=== PATIENT | female | born 1950 | race African-American/Black ===

== ENCOUNTER 2018-09-26 22:11 | Observation (INO) | payer MEDICARE, OTHER ==
[2018-09-26] MEDS ORDERED: ASPIRIN 81 MG TABLET, CHEWABLE PO ONE (22:20)
--- NOTE | 2018-09-26 22:52 | RADIOLOGY REPORT (SQ) ---
EXAM DESCRIPTION: XR CHEST 1 VIEW COMPLETED DATE/TME: 09/26/2018 22:20 CLINICAL HISTORY: 68 years, Female, htn COMPARISON: None. NUMBER OF VIEWS: 1 TECHNIQUE: Portable chest LIMITATIONS: None. FINDINGS: Heart size is normal. Osteopenia. Lungs are clear. No pneumothorax IMPRESSION: No acute cardiopulmonary process copyright 2010 [employer]- All Rights Reserved
--- NOTE | 2018-09-26 22:53 | RADIOLOGY REPORT (SQ) ---
EXAM DESCRIPTION: CT HEAD WITHOUT IV CONTRAST COMPLETED DATE/TME: 09/26/2018 22:20 CLINICAL HISTORY: 68 years, Female, HTN dizzy COMPARISON: 06/16/2016 CT brain TECHNIQUE: 204 Images stored on PACS. All CT scanners at this facility use dose modulation, iterative reconstruction, and/or weight based dosing when appropriate to reduce radiation dose to as low as reasonably achievable (ALARA). [facility]: Dose Right [facility]: CareDose [facility]: Dose Right [facility]: Teradose 4D [facility]: [employer] LIMITATIONS: None. FINDINGS: The globes are intact. The paranasal sinuses and mastoid air cells are unremarkable. No displaced or depressed skull fracture. No intra or extra-axial hemorrhage. CT is limited for evaluation of acute infarct. No CT evidence for large or territorial acute infarct. No mass or midline shift. IMPRESSION: Unremarkable unenhanced CT brain TECHNICAL DOCUMENTATION: Quality ID # 436: Final reports with documentation of one or more dose reduction techniques (e.g., Automated exposure control, adjustment of the mA and/or kV according to patient size, use of iterative reconstruction technique) copyright 2011 [employer]- All Rights Reserved
[2018-09-26 23:05] LABS: ABSOLUTE EOSINOPHILS # (AUTO) 0.1 10^3/uL (0.0-0.6); ABSOLUTE LYMPHOCYTES (AUTO) 1.6 10^3/uL (0.5-4.7); ABSOLUTE MONOCYTES (AUTO) 0.6 10^3/uL (0.1-1.4); ABSOLUTE NEUT (AUTO) 2.8 10^3/uL (1.7-8.2); BASOPHILS % (AUTO) 0.4 % (0-2); EOSINOPHILS % (AUTO) 2.5 % (0-6); HEMATOCRIT 35.5 % (36.0-47.0); HEMOGLOBIN 12.1 g/dL (12.0-15.5); MEAN CORPUSCULAR HEMOGLOBIN 28.9 pg (27.0-33.4); MEAN CORPUSCULAR HGB CONC 34.2 g/dL (32.0-36.0); MEAN CORPUSCULAR VOLUME 85 fl (80-97); MONOCYTES % (AUTO) 11.3 % (3-13); PLATELET COUNT 308 10^3/uL (150-450); RED BLOOD COUNT 4.19 10^6/uL (3.72-5.28); RED CELL DISTRIBUTION WIDTH 13.9 % (11.5-14.0); SEGMENTED NEUTROPHILS % (AUTO) 53.8 % (42-78); TOTAL CELLS COUNTED % (AUTO) 100 %; WHITE BLOOD COUNT 5.1 10^3/uL (4.0-10.5)
[2018-09-26] MEDS ORDERED: METOPROLOL TARTRATE PF/INJ 5 MG/5 ML SDV IV ONE (23:09)
--- NOTE | 2018-09-26 23:13 | ER Document Report ---
ED General - General Chief Complaint: Blood Pressure Problem Stated Complaint: HIGH BLOOD PRESSURE Time Seen by Provider: 09/26/18 22:57 Primary Care Provider: KARLA SUÁREZ MD [Primary Care Provider] - Follow up as needed TRAVEL OUTSIDE OF THE [place] IN LAST 30 DAYS: No - HPI Notes: Patient is a 68-year-old female that presents to the emergency department for chief complaint of dizziness. Patient states this evening she started to have dizziness. She describes it as feeling like the waves of the ocean or in her head. She denies any lightheadedness or syncope. She does state that this prompted her to take her blood pressure and she found it was elevated. She usually takes lisinopril once a day and reports being compliant with this medication. Patient also states she has had some tingling in her right arm which has been intermittent. She states that her right arm currently feels normal. She denies headache, vision changes, chest pain, palpitations, nausea, vomiting, diaphoresis and abdominal pain. Past Medical History: Hypertension, asthma Past Surgical History: Tubal ligation, hysterectomy, breast lumpectomy Social History: Denies tobacco and alcohol use Family History: Reviewed and noncontributory for presenting illness Allergies: Reviewed, see documented allergy list. REVIEW OF SYSTEMS: CONSTITUTIONAL : No fever No chills No diaphoresis No recent illness EENT: No vision changes No congestion No sore throat CARDIOVASCULAR: No chest pain No palpitations RESPIRATORY: No shortness of breath No cough No difficulty breathing GASTROINTESTINAL: No abdominal pain No nausea No vomiting No diarrhea GENITOURINARY: No dysuria No hematuria No difficulty urinating MUSCULOSKELETAL: No back pain No leg pain No arm pain SKIN: No rashes No lesions LYMPHATIC: No swollen, enlarged glands. NEUROLOGICAL: No lightheadedness No headache Dizziness No weakness paresthesias PSYCHIATRIC: No anxiety No depression PHYSICAL EXAMINATION: Vital signs reviewed, nursing noted reviewed. GENERAL: Well-appearing, well-nourished and in no acute distress. HEAD: Atraumatic, normocephalic. EYES: Eyes appear normal, extraocular movements intact, sclera anicteric, conjunctiva are normal. ENT: nares patent, oropharynx clear without exudates. Moist mucous membranes. NECK: Normal range of motion, supple without lymphadenopathy LUNGS: Breath sounds clear to auscultation bilaterally and equal. No wheezes rales or rhonchi. HEART: Regular rate and rhythm without murmurs ABDOMEN: Soft, nontender, normoactive bowel sounds. No rebound, guarding, or rigidity. No masses appreciated. EXTREMITIES: Nontender, good range of motion, no pitting or edema. NEUROLOGICAL: No focal neurological deficits. Moves all extremities spontaneously Motor and sensory grossly intact on exam. PSYCH: Normal mood, normal affect. SKIN: Warm, Dry, normal turgor, no rashes or lesions noted on exposed skin - Related Data Allergies/Adverse Reactions: No Known Allergies Allergy (Unverified 06/16/16 14:58) Past Medical History - Social History Smoking Status: Never Smoker Family History: Reviewed & Not Pertinent - Past Medical History Cardiac Medical History: Reports: Hx Hypertension Pulmonary Medical History: Reports: Hx Asthma Past Surgical History: Reports: Hx Breast Surgery, Hx Hysterectomy, Hx Tubal Ligation - Immunizations Hx Diphtheria, Pertussis, Tetanus Vaccination: Yes Physical Exam - Vital signs Vitals: Temp Pulse Resp BP Pulse Ox 97.9 F 93 16 229/94 H 98 09/26/18 22:16 09/26/18 22:16 09/26/18 22:16 09/26/18 22:16 09/26/18 22:16 Course - Re-evaluation Re-evalutation: 09/26/18 23:11 Vitals reviewed. Nursing notes reviewed. Patient is hypertensive but appears to be in no acute distress. She has no focal neurologic deficits currently. Patient will be given IV metoprolol for blood pressure control. 09/27/18 00:09 Patient's lab work is unremarkable. Her troponin is negative. Her CT brain shows no acute intracranial process. After IV metoprolol her blood pressure is 155/76. Patient's complaint of intermittent right arm paresthesias is concerning for possible TIA related to her uncontrolled hypertension. She will be admitted to the hospital for observation. Case discussed with Dr. Suárez who has accepted admission. Laboratory 09/26/18 09/26/18 09/26/18 22:58 22:58 22:58 WBC 5.1 RBC 4.19 Hgb 12.1 Hct 35.5 L MCV 85 MCH 28.9 MCHC 34.2 RDW 13.9 Plt Count 308 Seg Neutrophils % 53.8 Lymphocytes % 32.0 Monocytes % 11.3 Eosinophils % 2.5 Basophils % 0.4 Absolute Neutrophils 2.8 Absolute Lymphocytes 1.6 Absolute Monocytes 0.6 Absolute Eosinophils 0.1 Absolute Basophils 0.0 Sodium 143.0 Potassium 3.5 L Chloride 104 Carbon Dioxide 31 H Anion Gap 8 BUN 16 Creatinine 0.96 Est GFR ( Amer) > 60 Est GFR (Non-Af Amer) 58 L Glucose 93 Calcium 10.1 Total Bilirubin 0.3 Direct Bilirubin 0.1 Neonat Total Bilirubin Not Reportable Neonat Direct Bilirubin Not Reportable Neonat Indirect Bili Not Reportable AST 23 ALT 25 Alkaline Phosphatase 100 Creatine Kinase Cancelled CK-MB (CK-2) Cancelled Troponin I < 0.012 Total Protein 7.9 Albumin 4.6 Chest X-Ray 09/26/18 22:20 IMPRESSION: No acute cardiopulmonary process copyright 2010 [employer]- All Rights Reserved Head CT 09/26/18 22:20 IMPRESSION: Unremarkable unenhanced CT brain TECHNICAL DOCUMENTATION: Quality ID # 436: Final reports with documentation of one or more dose reduction techniques (e.g., Automated exposure control, adjustment of the mA and/or kV according to patient size, use of iterative reconstruction technique) copyright 2011 [employer]- All Rights Reserved - Vital Signs Vital signs: Temp Pulse Resp BP Pulse Ox 97.9 F 93 16 229/94 H 98 09/26/18 22:16 09/26/18 22:16 09/26/18 22:16 09/26/18 22:16 09/26/18 22:16 - Laboratory Result Diagrams: 09/26/18 22:58 09/26/18 22:58 Laboratory results interpreted by me: 09/26/18 09/26/18 22:58 22:58 Hct 35.5 L Potassium 3.5 L Carbon Dioxide 31 H Est GFR (Non-Af Amer) 58 L - EKG Interpretation by Me Additional EKG results interpreted by me: 09/26/18 23:12 Interpreted by myself 08/27/2007: Normal sinus rhythm, rate 84, normal axis, LVH Discharge - Discharge Clinical Impression: Arm paresthesia, right, Dizziness Hypertension Qualifiers: Hypertension type: unspecified Qualified Code(s): I10 - Essential (primary) hypertension Condition: Stable Disposition: ADMITTED OBSERVATION Admitting Provider: [facility] Unit Admitted: Telemetry
[2018-09-26 23:23] LABS: ALANINE AMINOTRANSFERASE 25 U/L (9-52); ALBUMIN 4.6 g/dL (3.5-5.0); ALKALINE PHOSPHATASE 100 U/L (38-126); ANION GAP 8 (5-19); ASPARTATE AMINO TRANSFERASE 23 U/L (14-36); BILIRUBIN,DIRECT 0.1 mg/dL (0.0-0.4); BILIRUBIN,TOTAL 0.3 mg/dL (0.2-1.3); BLOOD UREA NITROGEN 16 mg/dL (7-20); CALCIUM 10.1 mg/dL (8.4-10.2); CARBON DIOXIDE 31 mmol/L (22-30); CHLORIDE 104 mmol/L (98-107); GLUCOSE 93 mg/dL (75-110); POTASSIUM 3.5 mmol/L (3.6-5.0); TOTAL PROTEIN 7.9 g/dL (6.3-8.2)
--- NOTE | 2018-09-27 01:30 | EKG REPORT ---
SEVERITY:- ABNORMAL ECG - SINUS RHYTHM LEFT VENTRICULAR HYPERTROPHY : Confirmed by: Pattie Gaspar MD 27-Sep-2018 01:29:18
[2018-09-27 01:46] LABS: FREE T4 (FREE THYROXINE) 1.25 ng/dL (0.78-2.19)
[2018-09-27 02:00] LABS: THYROID STIMULATING HORMONE 2.89 uIU/mL (0.47-4.68)
[2018-09-27] MEDS: NICARDIPINE HCL RTU, ISO-OS 20 MG/200 ML RTUINJ IV PRN ×3 (02:11→13:07)
--- NOTE | 2018-09-27 10:35 | ER Document Report ---
Doctor's Note Notes: 09/27/18 10:33 Patient seen and examined. She has no acute complaints or concerns. She denies any paresthesias at this time. No longer feeling dizzy. Did have breakfast this morning, tolerated without difficulty. Vital signs reviewed, current telemetry reveals heart rate of 79, blood pressure 133/78, currently on Cardene drip, SPO2 100% on room air. Heart is regular rate and rhythm, lungs are clear to auscultation bilaterally. Patient is awake and alert, moves all 470 spontaneously. Skin is warm and dry. Patient is currently awaiting a unit bed. She is admitted to Dr. Mckenzie. She is in the midst of collecting a 24-hour urine. We will continue to monitor.
[2018-09-27] MEDS: ENOXAPARIN SODIUM INJ 40 MG/0.4 ML DISP.SYRIN SUBCUT SCH (10:53)
[2018-09-27] MEDS ORDERED: ALBUTEROL SULFATE HFA (90 MCG/PUFF) 200 PUFF/8.5 GM MDI IH PRN (14:31)
[2018-09-27] MEDS: METOPROLOL SUCCINATE 50 MG TAB.SR.24H PO SCH (15:25)
[2018-09-27] MEDS ORDERED: ENOXAPARIN SODIUM INJ 40 MG/0.4 ML DISP.SYRIN SUBCUT SCH (17:30)
[2018-09-27] MEDS ORDERED: MONTELUKAST SODIUM 10 MG TABLET PO SCH (18:00)
[2018-09-27] MEDS ORDERED: (PENDING PHARMACY ID) (Lisinopril/Hydrochlorothiazide [Zestoretic 20-12.5 Mg Tablet] 1 TAB PO SCH (18:00)
--- NOTE | 2018-09-27 18:59 | PDOC H&P ---
History of Present Illness Admission Date/PCP: 09/27/18 00:15 KARLA SUÁREZ MD History of Present Illness: CAROLYN WELDON is a 68 year old female She is very noncompliant the last office visit was over 2 years ago, she came to the emergency room last night for evaluation of sudden onset of right-sided hemisensory loss, she said she felt numbness on the right side of her body she was at [facility] when she had this episode of sudden numbness affecting the right side of her body she took her blood pressure it was elevated she then came to the emergency room for evaluation. In the emergency room she was evaluated CT head was done it was negative for any acute pathology, the metabolic panel that was drawn demonstrated hypokalemia the systolic blood pressure was over 200 .I was called earlier this morning to have this patient admitted to the hospital for further evaluation. She was started on Cardene infusion in the emergency room when I saw her in the ER the blood pressure was somewhat controlled,Her symptom is consistent with TIA Past Medical History Cardiac Medical History: Reports: Hypertension Pulmonary Medical History: Reports: Asthma Past Surgical History Past Surgical History: Reports: Hysterectomy, Tubal Ligation Social History Smoking Status: Never Smoker Frequency of Alcohol Use: None Hx Recreational Drug Use: No Drugs: None Hx Prescription Drug Abuse: No - Advance Directive Resuscitation Status: Full Code Family History Family History: Reviewed & Not Pertinent Parental Family History Reviewed: Yes Children Family History Reviewed: Yes Sibling(s) Family History Reviewed.: Yes Medication/Allergy Home Medications: Albuterol Sulfate [Proair HFA Inhalation Aerosol 8.5 gm MDI] 2 puff IH Q4HP PRN 09/27/18 Lisinopril/Hydrochlorothiazide [Zestoretic 20-12.5 mg Tablet] 1 tab PO BID 09/27/18 Montelukast Sodium [Singulair 10 mg Tablet] 10 mg PO QPM 09/27/18 Allergies/Adverse Reactions: No Known Allergies Allergy (Unverified 06/16/16 14:58) Review of Systems Constitutional: ABSENT: chills, fever(s), headache(s), weight gain, weight loss Eyes: ABSENT: visual disturbances Ears: ABSENT: hearing changes Cardiovascular: ABSENT: chest pain, dyspnea on exertion, edema, orthropnea, palpitations Respiratory: ABSENT: cough, hemoptysis Gastrointestinal: ABSENT: abdominal pain, constipation, diarrhea, hematemesis, hematochezia, nausea, vomiting Genitourinary: ABSENT: dysuria, hematuria Musculoskeletal: ABSENT: joint swelling Integumentary: ABSENT: rash, wounds Neurological: PRESENT: paresthesias, tingling. ABSENT: abnormal gait, abnormal speech, confusion, dizziness, focal weakness, syncope Psychiatric: ABSENT: anxiety, depression, homidical ideation, suicidal ideation Endocrine: ABSENT: cold intolerance, heat intolerance, menstrual abnormalities, polydipsia, polyuria Hematologic/Lymphatic: ABSENT: easy bleeding, easy bruising, lymphadenopathy Physical Exam Vital Signs: Temp Pulse Resp BP Pulse Ox 98.1 F 63 16 132/66 H 100 09/27/18 17:58 09/27/18 17:58 09/27/18 17:58 09/27/18 17:58 09/27/18 17:27 Intake & Output 09/26/18 09/27/18 09/28/18 06:59 06:59 06:59 Intake Total 250 600 Output Total 800 Balance 250 -200 Weight 66.7 kg 63.9 kg General appearance: PRESENT: no acute distress, well-developed, well-nourished Head exam: PRESENT: atraumatic, normocephalic Eye exam: PRESENT: conjunctiva pink, EOMI, PERRLA Ear exam: PRESENT: normal external ear exam Mouth exam: PRESENT: moist, tongue midline Neck exam: PRESENT: full ROM Respiratory exam: PRESENT: rhonchi Cardiovascular exam: PRESENT: RRR, +S1, +S2 Vascular exam: PRESENT: normal capillary refill GI/Abdominal exam: PRESENT: normal bowel sounds, soft Rectal exam: PRESENT: deferred Neurological exam: PRESENT: alert, awake, oriented to person, oriented to place, oriented to time, oriented to situation, CN II-XII grossly intact Psychiatric exam: PRESENT: appropriate affect, normal mood Skin exam: PRESENT: dry, intact, warm Results Laboratory Results: 09/26/18 22:58 09/26/18 22:58 09/26/18 09/26/18 09/26/18 22:58 22:58 22:58 WBC 5.1 RBC 4.19 Hgb 12.1 Hct 35.5 L MCV 85 MCH 28.9 MCHC 34.2 RDW 13.9 Plt Count 308 Seg Neutrophils % 53.8 Lymphocytes % 32.0 Monocytes % 11.3 Eosinophils % 2.5 Basophils % 0.4 Absolute Neutrophils 2.8 Absolute Lymphocytes 1.6 Absolute Monocytes 0.6 Absolute Eosinophils 0.1 Absolute Basophils 0.0 Sodium 143.0 Potassium 3.5 L Chloride 104 Carbon Dioxide 31 H Anion Gap 8 BUN 16 Creatinine 0.96 Est GFR ( Amer) > 60 Est GFR (Non-Af Amer) 58 L Glucose 93 Calcium 10.1 Total Bilirubin 0.3 AST 23 ALT 25 Alkaline Phosphatase 100 Total Protein 7.9 Albumin 4.6 TSH 2.89 Free T4 1.25 09/26/18 09/26/18 09/27/18 22:58 22:58 02:40 Creatine Kinase Cancelled CK-MB (CK-2) Cancelled Troponin I < 0.012 < 0.012 Impressions: Chest X-Ray 09/26/18 22:20 IMPRESSION: No acute cardiopulmonary process copyright 2010 [employer]- All Rights Reserved Head CT 09/26/18 22:20 IMPRESSION: Unremarkable unenhanced CT brain TECHNICAL DOCUMENTATION: Quality ID # 436: Final reports with documentation of one or more dose reduction techniques (e.g., Automated exposure control, adjustment of the mA and/or kV according to patient size, use of iterative reconstruction technique) copyright 2010 [employer]- All Rights Reserved Assessment & Plan - Diagnosis (1) Transient ischemic attack (TIA) Is this a current diagnosis for this admission?: Yes Plan: Patient presentation consistent with TIA, she is admitted for management (2) Hypertensive emergency Is this a current diagnosis for this admission?: Yes Plan: She has symptomatic systolic blood pressure more than 180 this hypertensive emergency she is presenting with TIA syndrome in the setting of very high blood pressure
[2018-09-27] MEDS: HYDROCHLOROTHIAZIDE 12.5 MG TABLET PO SCH (22:17)
[2018-09-27] MEDS: LISINOPRIL 10 MG TABLET PO SCH (22:17)
--- NOTE | 2018-09-27 23:57 | XCELERA REPORT ---
[address] [address] Transthoracic Echocardiogram Report Name: CAROLYN WELDON Age: 68 yrs Gender: Female : 1950 Patient Status: Inpatient Patient Location: [address] [place] [address] Study Date: 09/27/2018 07:05 PM Height: 64 in Weight: 147 lb BSA: 1.7 m2 Procedure: A two-dimensional transthoracic echocardiogram with color flow and Doppler was performed. The study was technically limited with all images being suboptimal in quality. Images were not obtained from all of the standard acoustic windows due to the limited scope of the study. Reason For Study: hypertension History: HTN. Ordering Physician: KARLA SUÁREZ Performed By: Patricia Gee Interpretation Summary The left ventricle is normal in size. There is normal left ventricular wall thickness. No True apical 2 chamber views obtained.Hence cannot comment on the apical anterior , the basal anterior, the basal inferior and apical inferior zimmerman.The mid anterior , the mid inferior and the rest of the LV zimmerman contract normally. . LVEF is normal and is greater than 60% in the limited views. Doppler measurements suggest impaired left ventricular relaxation, which is associated with grade I/IV or mild diastolic dysfunction There is no thrombus. The right ventricle is normal in size and function. The right atrium is normal. The left atrial size is normal. There is no evidence of mitral valve prolapse. There is no vegetation seen on the mitral valve. There is no mitral valve stenosis. There is no mitral regurgitation noted. There is no aortic valvular vegetation. There is no aortic valve stenosis There is no LVOT obstruction. No aortic regurgitation is present. There is no tricuspid stenosis. There is a trace amount of tricuspid regurgitation Right ventricular systolic pressure is at the upper limits of normal RVSP is 26 to 31 mm of Hg , with RA mean of 5 to 10. There is no pulmonic valvular stenosis. There is a trace amount of pulmonic regurgitation The aortic root is not well visualized but is probably normal size. The inferior vena cava appeared normal and decreased > 50% with respiration (RAP 5-10 mmHg) There is no pericardial effusion. MMode/2D Measurements & Calculations RVDd: 2.4 cm LVIDd: 4.3 cm FS: 34.8 % Ao root diam: 2.5 cm IVSd: 1.0 cm LVIDs: 2.8 cm EDV(Teich): 82.3 ml Ao root area: 5.0 cm2 LVPWd: 0.92 cm ESV(Teich): 29.3 ml LA dimension: 2.6 cm EF(Teich): 64.4 % Doppler Measurements & Calculations MV E max lo: MV P1/2t max lo: Ao V2 max: LV V1 max P.3 cm/sec 61.3 cm/sec 124.9 cm/sec 5.0 mmHg MV A max lo: MV P1/2t: 58.5 msec Ao max PG: LV V1 max: 94.3 cm/sec MVA(P1/2t): 3.8 cm2 6.2 mmHg 111.6 cm/sec MV E/A: 0.59 MV dec slope: 306.8 cm/sec2 MV dec time: 0.25 sec PA V2 max: PI end-d lo: TR max lo: MV P1/2t-pr_phl: 93.7 cm/sec 85.5 cm/sec 228.0 cm/sec 58.5 msec PA max PG: TR max P.5 mmHg 20.8 mmHg Left Ventricle The left ventricle is normal in size. There is normal left ventricular wall thickness. No True apical 2 chamber views obtained.Hence cannot comment on the apical anterior , the basal anterior, the basal inferior and apical inferior zimmerman.The mid anterior , the mid inferior and the rest of the LV zimmerman contract normally. . LVEF is normal and is greater than 60% in the limited views. Doppler measurements suggest impaired left ventricular relaxation, which is associated with grade I/IV or mild diastolic dysfunction. There is no thrombus. Right Ventricle The right ventricle is normal in size and function. Atria The right atrium is normal. The left atrial size is normal. Mitral Valve There is no evidence of mitral valve prolapse. There is no vegetation seen on the mitral valve. There is no mitral valve stenosis. There is no mitral regurgitation noted. Aortic Valve There is no aortic valvular vegetation. There is no aortic valve stenosis. There is no LVOT obstruction. No aortic regurgitation is present. Tricuspid Valve There is no tricuspid stenosis. There is a trace amount of tricuspid regurgitation. Right ventricular systolic pressure is at the upper limits of normal. RVSP is 26 to 31 mm of Hg , with RA mean of 5 to 10. Pulmonic Valve There is no pulmonic valvular stenosis. There is a trace amount of pulmonic regurgitation. Great Vessels The aortic root is not well visualized but is probably normal size. The inferior vena cava appeared normal and decreased > 50% with respiration (RAP 5-10 mmHg). Effusions There is no pericardial effusion. : KARLA SUÁREZ > Pattie Gaspar
[2018-09-28 06:40] LABS: ANION GAP 9 (5-19); BLOOD UREA NITROGEN 20 mg/dL (7-20); CALCIUM 10.2 mg/dL (8.4-10.2); CARBON DIOXIDE 26 mmol/L (22-30); CHLORIDE 108 mmol/L (98-107); GLUCOSE 98 mg/dL (75-110); POTASSIUM 4.2 mmol/L (3.6-5.0); SODIUM 142.6 mmol/L (137-145)
[2018-09-28] MEDS: METOPROLOL SUCCINATE 50 MG TAB.SR.24H PO SCH (09:35)
[2018-09-28] MEDS: LISINOPRIL 10 MG TABLET PO SCH (09:35)
[2018-09-28] MEDS: HYDROCHLOROTHIAZIDE 12.5 MG TABLET PO SCH (09:36)
[2018-09-28] MEDS: ENOXAPARIN SODIUM INJ 40 MG/0.4 ML DISP.SYRIN SUBCUT SCH (09:38)
[2018-09-28] MEDS ORDERED: ASPIRIN 81 MG TABLET, CHEWABLE PO SCH (10:00)
[2018-09-28 18:43] VITALS: BP 132/66
--- NOTE | 2018-09-28 20:20 | PDOC DISCHARGE SUMMARY ---
General - Admit/Disc Date/PCP Admission Date/Primary Care Provider: 09/27/18 00:15 KARLA SUÁREZ MD Discharge Date: 09/28/18 - Discharge Diagnosis (1) Transient ischemic attack (TIA) Is this a current diagnosis for this admission?: Yes (2) Hypertensive emergency Is this a current diagnosis for this admission?: Yes - Additional Information Resuscitation Status: Full Code Discharge Diet: Cardiac Discharge Activity: Activity As Tolerated Prescriptions: Aspirin [Aspirin 81 mg Chewable Tablet] 81 mg PO DAILY #90 tab.chew Lisinopril/Hydrochlorothiazide [Zestoretic 20-12.5 mg Tablet] 1 tab PO BID #60 tablet Metoprolol Succinate [Toprol Xl 50 mg Tab.sr] 50 mg PO DAILY #90 tab.sr.24h Home Medications: Albuterol Sulfate [Proair HFA Inhalation Aerosol 8.5 gm MDI] 2 puff IH Q4HP PRN 09/27/18 Montelukast Sodium [Singulair 10 mg Tablet] 10 mg PO QPM 09/27/18 Aspirin [Aspirin 81 mg Chewable Tablet] 81 mg PO DAILY #90 tab.chew 09/28/18 Lisinopril/Hydrochlorothiazide [Zestoretic 20-12.5 mg Tablet] 1 tab PO BID #60 tablet 09/28/18 Metoprolol Succinate [Toprol Xl 50 mg Tab.sr] 50 mg PO DAILY #90 tab.sr.24h 09/28/18 History of Present Illness History of Present Illness: CAROLYN WELDON is a 68 year old female She is very noncompliant the last office visit was over 2 years ago, she came to the emergency room last night for evaluation of sudden onset of right-sided hemisensory loss, she said she felt numbness on the right side of her body she was at [facility] when she had this episode of sudden numbness affecting the right side of her body she took her blood pressure it was elevated she then came to the emergency room for evaluation. In the emergency room she was evaluated CT head was done it was negative for any acute pathology, the metabolic panel that was drawn demonstrated hypokalemia the systolic blood pressure was over 200 .I was called earlier this morning to have this patient admitted to the hospital for further evaluation. She was started on Cardene infusion in the emergency room when I saw her in the ER the blood pressure was somewhat controlled,Her symptom is consistent with TIA Hospital Course Hospital Course: Patient was admitted for the management of transient ischemic attack in the setting of hypertensive emergency, she was initially treated with intravenous nicardipine, subsequently transitioned into lisinopril and metoprolol. She was managed according to the TIA/stroke protocol guideline, a 2D echo was done it was normal Physical Exam Vital Signs: Temp Pulse Resp BP Pulse Ox 98.5 F 57 L 16 132/66 H 96 09/28/18 18:41 09/28/18 18:41 09/28/18 18:41 09/28/18 18:41 09/28/18 18:41 Intake & Output 09/27/18 09/28/18 09/29/18 06:59 06:59 06:59 Intake Total 250 600 Output Total 1100 Balance 250 -500 Weight 66.7 kg 64.2 kg General appearance: PRESENT: no acute distress, well-developed, well-nourished Head exam: PRESENT: atraumatic, normocephalic Eye exam: PRESENT: conjunctiva pink, EOMI, PERRLA Ear exam: PRESENT: normal external ear exam Mouth exam: PRESENT: moist, tongue midline Neck exam: PRESENT: full ROM Respiratory exam: PRESENT: clear to auscultation rikki Cardiovascular exam: PRESENT: RRR, +S1, +S2 Vascular exam: PRESENT: normal capillary refill GI/Abdominal exam: PRESENT: normal bowel sounds, soft Rectal exam: PRESENT: deferred Neurological exam: PRESENT: alert, CN II-XII grossly intact Psychiatric exam: PRESENT: appropriate affect, normal mood Skin exam: PRESENT: dry, intact, warm Results Laboratory Results: 09/26/18 22:58 09/28/18 06:06 09/28/18 06:06 Sodium 142.6 Potassium 4.2 Chloride 108 H Carbon Dioxide 26 Anion Gap 9 BUN 20 Creatinine 1.08 Est GFR ( Amer) > 60 Est GFR (Non-Af Amer) 51 L Glucose 98 Calcium 10.2 09/26/18 09/26/18 09/27/18 22:58 22:58 02:40 Creatine Kinase Cancelled CK-MB (CK-2) Cancelled Troponin I < 0.012 < 0.012 Impressions: Chest X-Ray 09/26/18 22:20 IMPRESSION: No acute cardiopulmonary process copyright 2011 [employer]- All Rights Reserved Head CT 09/26/18 22:20 IMPRESSION: Unremarkable unenhanced CT brain TECHNICAL DOCUMENTATION: Quality ID # 436: Final reports with documentation of one or more dose reduction techniques (e.g., Automated exposure control, adjustment of the mA and/or kV according to patient size, use of iterative reconstruction technique) copyright 2010 [employer]- All Rights Reserved Qualifiers - * PATIENT BEING DISCHARGED WITH ANY OF THE FOLLOWING DIAGNOSIS: No
[2018-10-01 06:10] LABS: CORTISOL FREE URINE 34 ug/L (Undefined); CORTISOL FREE URINE 24 HR 2 41 ug/24 hr (0-50)
[2018-10-02 07:10] LABS: METANEPHRINE URINE 123 ug/L (Undefined); METANEPHRINE URINE 24HR 148 ug/24 hr (45-290); NORMETANEPHRINE URINE 350 ug/L (Undefined); NORMETANEPHRINE URINE 24HR 420 ug/24 hr (82-500)
== END 2018-09-28 19:54 | disposition home or self-care (01) ==
LOC: ER 22:11 → INTOOBSV 09-27 00:15 → OBSVTOIN 09-27 00:15 → EH 09-27 00:15 → 3S 09-27 17:55
PROVIDERS: ADMIT Internal Medicine; ATTEND Internal Medicine
DX: G45.9 Transient cerebral ischemic attack, unspecified (principal); I16.1 Hypertensive emergency; I10 Essential (primary) hypertension; E87.6 Hypokalemia; J45.909 Unspecified asthma, uncomplicated; Z79.82 Long term (current) use of aspirin; Z79.899 Other long term (current) drug therapy; Z91.14 Patient's other noncompliance with medication regimen
CPT/HCPCS: 93005; 99285; 96365; 96366; 36415 ×3; 84439; 84244; 84443; 82570; 85025; 82088; 80048; 80053; 84484 ×2; 82530; 93306; 71045; 70450; 93010; 97116; 97161; 97165; A9270 ×8; J1650 ×2; J3490 ×3

== ENCOUNTER → 2018-10-09 | Outpatient (CLI) | payer MEDICARE, OTHER ==
--- NOTE | 2018-10-09 13:36 | WOMENS IMAGING REPORT ---
EXAM DESCRIPTION: 3D SCREENING MAMMO BILAT COMPLETED DATE/TIME: 10/09/2018 1:14 pm REASON FOR STUDY: Z12.31 ROUTINE 3D BILATERAL SCREENING Z12.31 ENCNTR SCREEN MAMMOGRAM FOR MALIGNAN T NEOPLASM OF SARAH COMPARISON: 2009 TECHNIQUE: Standard craniocaudal and mediolateral oblique views of each breast recorded using digita l acquisition and breast tomosynthesis. LIMITATIONS: None. FINDINGS: No masses, calcifications or architectural distortion. No areas of suspicion. Read with the assistance of CAD. .[facility] - R2 [employer] Version 1.3 .[facility] Imaging - R2 Cenova Version 2.1 .[facility] Imaging - R2 Cenova Version 2.4 .[facility] - R2 Cenova Version 2.4 .ON LICENSE OF [facility] - R2 [employer] Version 9.2 IMPRESSION: NORMAL MAMMOGRAM. BIRADS 1. BREAST DENSITY: b. There are scattered areas of fibroglandular density. BIRAD: 1 NEGATIVE RECOMMENDATION: ROUTINE SCREENING COMMENT: The patient has been notified of the results by letter per SA requirements. Additional no tification policies are in place for contacting patient with suspicious or incomplete findings. Quality ID #[id number]: The [employer] recommends an annual screening mammogram for women aged 40 years or over. This facility utilizes a reminder system to ensure that all patients receive reminder letters, and/or direct phone calls for appointments. This includes reminders for routine scr eening mammograms, diagnostic mammograms, or other Breast Imaging Interventions when appropriate. Th is patient will be placed in the appropriate reminder system. The [employer] (ACR) has developed recommendations for screening MRI of the breast s in certain patient populations, to be used in conjunction with mammography. Breast MRI surveillanc e may be appropriate for women with more than 20% lifetime risk of developing breast cancer as deter mined by genetic testing, significant family history of the disease, or history of mantle radiation f or Hodgkins Disease. ACR Practice Guidelines 2008. DBT Technology DBT is a type of tomographic mammography. With conventional mammography, overlapping breast tissue ma y make lesions difficult to detect, even with good compression. DBT uses an x-ray tube that rotates a round the breast, taking images at different angles. These images are then combined to create thin sl ices of the breast that the radiologist can view as a 3D reconstruction. The [employer] unit can perform full-field digital mammograms (2D imaging); or DBT (3D imaging); or both, in a combination mode that quickly performs both the mammogram and the tomosynthesis scan while the breast is still compressed. PQRS 6045F: Fluoroscopic imaging is not utilized for breast tomosynthesis. TECHNICAL DOCUMENTATION: FINDING NUMBER: (1) ASSESSMENT: (1) JOB ID: [id number] [employer]- All Rights Reserved Reading location - IP/workstation name: [email or web address]
== END ==
LOC: WI 12:57
PROVIDERS: ATTEND Internal Medicine
DX: Z12.31 Encounter for screening mammogram for malignant neoplasm of breast (principal)
CPT/HCPCS: 77063; 77067